=== PATIENT | female | born 2000 | race Caucasian/White ===

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

== ENCOUNTER 2023-07-05 17:06 | Emergency (ER) | payer BC ==
[2023-07-05] MEDS ORDERED: SODIUM CHLORIDE 0.9% 1,000 ML IV STA ×2 (17:48→21:55)
--- NOTE | 2023-07-05 17:53 | ED ---
Abdominal Pain HPI - General Chief Complaint: Abdominal Pain Stated Complaint: Abd/Back/Head pain Time Seen by Provider: 07/05/23 17:38 Source: patient, RN notes reviewed Mode of arrival: ambulatory Limitations: no limitations - History of Present Illness Initial Comments: Patient is a 22-year-old female presented ER with chief complaint of right lower quadrant pain patient states that her pain originally started on 07/03/23. Patient states the pain started in her right lower quadrant and has now spread to her right flank. Patient states she had one episode of vomiting last night. She denies any current nausea. She also reports a fever of 101 last night she took [id number] medication with relief. Patient states her last mental cycles about 20 days ago. Patient denies any chest pain, shortness of breath, dysuria, constipation/diarrhea. Denies any prior abdominal surgeries. Denies possible . Patient's mother, at bedside, states that her brother gets kidney stones frequently. - Related Data Previous Rx's Medication Instructions Recorded Ciprofloxacin HCl [Cipro] 500 mg PO Q12HR #20 tablet 07/05/23 Allergies Allergy/AdvReac Type Severity Reaction Status Date / Time No Known Allergies Allergy Verified 07/05/23 17:33 Review of Systems ROS Statement: Those systems with pertinent positive or pertinent negative responses have been documented in the HPI. ROS Other: All systems not noted in ROS Statement are negative. Past Medical History Past Medical History: Asthma Additional Past Medical History / Comment(s): Esophagitis History of Any Multi-Drug Resistant Organisms: None Reported Past Surgical History: Adenoidectomy, Tonsillectomy Past Psychological History: No Psychological Hx Reported Smoking Status: Never smoker Past Alcohol Use History: None Reported Past Drug Use History: None Reported General Exam Limitations: no limitations General appearance: alert, in no apparent distress Respiratory exam: Present: normal lung sounds bilaterally. Absent: respiratory distress, wheezes, rales, rhonchi, stridor Cardiovascular Exam: Present: tachycardia, normal heart sounds GI/Abdominal exam: Present: soft, tenderness (right sided), normal bowel sounds Back exam: Present: CVA tenderness (R) Neurological exam: Present: alert, oriented X3, CN II-XII intact Psychiatric exam: Present: normal affect, normal mood Skin exam: Present: warm, normal color, diaphoretic Course Vital Signs 07/05/23 07/05/23 17:31 21:00 Temperature 98.2 F 100.6 F H Pulse Rate 113 H Respiratory 20 Rate Blood Pressure 116/79 O2 Sat by Pulse 99 Oximetry Medical Decision Making - Medical Decision Making Was pt. sent in by a medical professional or institution (HENRRY Burnham, CREATIVE RESOURCE MANAGER, urgent care, hospital, or [facility]...) When possible be specific @ -No Did you speak to anyone other than the patient for history (EMS, parent, family, police, friend...)? What history was obtained from this source @ -Mother Did you review nursing and triage notes (agree or disagree)? Why? @ -I reviewed and agree with nursing and triage notes Were old charts reviewed (outside hosp., previous admission, EMS record, old EKG, old radiological studies, urgent care reports/EKG's, [facility] records)? Report findings @ -No old charts were reviewed Differential Diagnosis (chest pain, altered mental status, abdominal pain women, abdominal pain men, vaginal bleeding, weakness, fever, dyspnea, syncope, headache, dizziness, GI bleed, back pain, seizure, CVA, palpatations, mental health, musculoskeletal)? @ -Differential Abdominal Pain Women: Appendicitis, Cholecystitis, diverticulosis, ischemic bowel, pancreatitis, hepatitis, UTI, gastroenteritis, AAA, incarcerated hernia, bowel obstruction, constipation, inflammatory bowel, hepatitis, peptic ulcer disease, splenic infarction, perforated viscus, vulvitis, ovarian torsion, PID, kidney stone, placenta abruption, this is not meant to be an all-inclusive list EKG interpreted by me (3pts min.). @ -None X-rays interpreted by me (1pt min.). @ -None done CT interpreted by me (1pt min.). @ -CT abdomen and pelvis shows a mildly dilated right ureter without urinary calculi noted. This could correlate to previous stone. U/S interpreted by me (1pt. min.). @ -None done What testing was considered but not performed or refused? (CT, X-rays, U/S, labs)? Why? @ -None What meds were considered but not given or refused? Why? @ -None Did you discuss the management of the patient with other professionals (professionals i.e. HENRRY Burnham, CREATIVE RESOURCE MANAGER, lab, RT, psych nurse, social media community manager, senior telecommunications specialist, teacher, information assurance officer, telehealth case manager)? Give summary @ -No Was smoking cessation discussed for >3mins.? @ -No Was critical care preformed (if so, how long)? @ -No Were there social determinants of health that impacted care today? How? (Samantha elessness, low income, unemployed, alcoholism, drug addiction, transportation, low edu. Level, literacy, decrease access to med. care, [facility], rehab)? @ -No Was there de-escalation of care discussed even if they declined (Discuss DNR or withdrawal of care, Hospice)? DNR status @ -No What co-morbidities impacted this encounter? (DM, HTN, Smoking, COPD, CAD, Cancer, CVA, ARF, Chemo, Hep., AIDS, mental health diagnosis, sleep apnea, morbid obesity)? @ -None Was patient admitted / discharged? Hospital course, mention meds given and route, prescriptions, significant lab abnormalities, going to OR and other pertinent info. @ -Discharge. Upon examination, patient had right CVA tenderness and right- sided abdominal pain. Patient did look slightly diaphoretic. Labs were significant for white blood cell count of 15.8. Urine analysis was positive for large leukocytes with rare bacteria. Patient received 1 L of IV fluid for hydration. CT abdomen and pelvis shows mildly dilated right ureter without urinary cultures were noted. This could be correlated to previous stone. Patient received 2 g of IV Rocephin and another liter of fluids prior to discharge. Patient spiked a fever of 100.3 in the ER and received by mouth Tylenol for fever control. Patient will be discharged in stable condition with a prescription for ciprofloxacin. I advised patient to stay well-hydrated and to complete full antibiotic course. Return parameters were discussed. Patient will be discharged in stable condition with follow-up to PCP. Patient and mother expressed understanding and agreement with care plan. Undiagnosed new problem with uncertain prognosis? @ -No Drug Therapy requiring intensive monitoring for toxicity (Heparin, Nitro, Insulin, Cardizem)? @ -No Were any procedures done? @ -No Diagnosis/symptom? @ -Urinary tract infection/pyelonephritis Acute, or Chronic, or Acute on Chronic? @ -Acute Uncomplicated (without systemic symptoms) or Complicated (systemic symptoms)? @ -Uncomplicated Side effects of treatment? @ -No Exacerbation, Progression, or Severe Exacerbation? @ -No Poses a threat to life or bodily function? How? (Chest pain, [place], [place], pneumonia, PE, COPD, DKA, ARF, appy, cholecystitis, CVA, Diverticulitis, Homicidal, Suic idal, threat to staff... and all critical care pts) @ -Yes, pyelonephritis can lead to sepsis. - Lab Data Result diagrams: 07/05/23 18:11 07/05/23 18:11 Lab Results 07/05/23 07/05/23 07/05/23 Range/Units 18:06 18:06 18:11 WBC 15.8 H (4.0-11.0) k/uL RBC 4.34 (3.80-5.40) m/uL Hgb 13.8 (11.4-16.0) gm/dL Hct 41.4 (34.0-46.0) % MCV 95.4 (80.0-100.0) fL MCH 31.8 (25.0-35.0) pg MCHC 33.4 (31.0-37.0) g/dL RDW 12.8 (11.5-15.5) % Plt Count 194 (150-450) k/uL MPV 8.0 Neutrophils % 86 % Lymphocytes % 7 % Monocytes % 5 % Eosinophils % 1 % Basophils % 0 % Neutrophils # 13.6 H (1.3-7.7) k/uL Lymphocytes # 1.2 (1.0-4.8) k/uL Monocytes # 0.7 (0-1.0) k/uL Eosinophils # 0.1 (0-0.7) k/uL Basophils # 0.0 (0-0.2) k/uL Sodium (137-145) mmol/L Potassium (3.5-5.1) mmol/L Chloride (98-107) mmol/L Carbon Dioxide (22-30) mmol/L Anion Gap mmol/L BUN (7-17) mg/dL Creatinine (0.52-1.04) mg/dL Est GFR (CKD-EPI)AfAm (>60 ml/min/1.73 sqM) Est GFR (CKD-EPI)NonAf (>60 ml/min/1.73 sqM) Glucose (74-99) mg/dL Plasma Lactic Acid Edgardo (0.7-2.0) mmol/L Calcium (8.4-10.2) mg/dL Total Bilirubin (0.2-1.3) mg/dL AST (14-36) U/L ALT (4-34) U/L Alkaline Phosphatase (38-126) U/L Total Protein (6.3-8.2) g/dL Albumin (3.5-5.0) g/dL Amylase (30-110) U/L Lipase (23-300) U/L Urine Color Colorless Urine Appearance Cloudy H (Clear) Urine pH 6.5 (5.0-8.0) Ur Specific [place] 1.005 (1.001-1.035) Urine Protein 1+ H (Negative) Urine Glucose (UA) Negative (Negative) Urine Ketones Negative (Negative) Urine Blood Large H (Negative) Urine Nitrite Negative (Negative) Urine Bilirubin Negative (Negative) Urine Urobilinogen <2.0 (<2.0) mg/dL Ur Leukocyte Esterase Large H (Negative) Urine RBC 13 H (0-5) /hpf Urine WBC >182 H (0-5) /hpf Urine WBC Clumps Few H (None) /hpf Ur Squamous Epith Cells 4 (0-4) /hpf Urine Bacteria Occasional H (None) /hpf Urine HCG, Qual Not Detected (Not Detectd) 07/05/23 07/05/23 Range/Units 18:11 18:11 WBC (4.0-11.0) k/uL RBC (3.80-5.40) m/uL Hgb (11.4-16.0) gm/dL Hct (34.0-46.0) % MCV (80.0-100.0) fL MCH (25.0-35.0) pg MCHC (31.0-37.0) g/dL RDW (11.5-15.5) % Plt Count (150-450) k/uL MPV Neutrophils % % Lymphocytes % % Monocytes % % Eosinophils % % Basophils % % Neutrophils # (1.3-7.7) k/uL Lymphocytes # (1.0-4.8) k/uL Monocytes # (0-1.0) k/uL Eosinophils # (0-0.7) k/uL Basophils # (0-0.2) k/uL Sodium 138 (137-145) mmol/L Potassium 4.2 (3.5-5.1) mmol/L Chloride 106 (98-107) mmol/L Carbon Dioxide 22 (22-30) mmol/L Anion Gap 10 mmol/L BUN 9 (7-17) mg/dL Creatinine 0.73 (0.52-1.04) mg/dL Est GFR (CKD-EPI)AfAm >90 (>60 ml/min/1.73 sqM) Est GFR (CKD-EPI)NonAf >90 (>60 ml/min/1.73 sqM) Glucose 96 (74-99) mg/dL Plasma Lactic Acid Edgardo 1.1 (0.7-2.0) mmol/L Calcium 9.3 (8.4-10.2) mg/dL Total Bilirubin 1.9 H (0.2-1.3) mg/dL AST 26 (14-36) U/L ALT 17 (4-34) U/L Alkaline Phosphatase 66 (38-126) U/L Total Protein 6.8 (6.3-8.2) g/dL Albumin 4.3 (3.5-5.0) g/dL Amylase 52 (30-110) U/L Lipase 67 (23-300) U/L Urine Color Urine Appearance (Clear) Urine pH (5.0-8.0) Ur Specific [place] (1.001-1.035) Urine Protein (Negative) Urine Glucose (UA) (Negative) Urine Ketones (Negative) Urine Blood (Negative) Urine Nitrite (Negative) Urine Bilirubin (Negative) Urine Urobilinogen (<2.0) mg/dL Ur Leukocyte Esterase (Negative) Urine RBC (0-5) /hpf Urine WBC (0-5) /hpf Urine WBC Clumps (None) /hpf Ur Squamous Epith Cells (0-4) /hpf Urine Bacteria (None) /hpf Urine HCG, Qual (Not Detectd) - Radiology Data Radiology results: report reviewed, image reviewed Disposition Clinical Impression: Urinary tract infection, Pyelonephritis Disposition: HOME SELF-CARE Condition: Stable Additional Instructions: Please return to the Emergency Department if symptoms worsen or any other concerns. Please stay well-hydrated and complete full course of antibiotics. Please follow-up with primary care physician. Prescriptions: Ciprofloxacin HCl [Cipro] 500 mg PO Q12HR #20 tablet Is patient prescribed a controlled substance at d/c from ED?: No Referrals: Greg Santoro DO [Primary Care Provider] - 1-2 days Time of Disposition: 22:17
[2023-07-05 17:54] VITALS: BP 116/79; PULSE 113; RESP 20
[2023-07-05 18:32] LABS: Appearance,Urine Cloudy (Clear); Bacteria,Urine Occasional /hpf; Bilirubin,Urine Negative (Negative); Blood,Urine Large (Negative); Color,Urine Colorless; Glucose,Urine (UA) Negative (Negative); Ketones,Urine Negative (Negative); Leukocyte Esterase,Urine Large (Negative); Nitrite,Urine Negative (Negative); PH, Urine 6.5 (5.0-8.0); Protein,Urine 1+ (Negative); RBC,Urine 13 /hpf (0-5); Specific Gravity,Urine 1.005 (1.001-1.035); Squamous Epithelial Cell,Urine 4 /hpf (0-4); Urobilinogen,Urine <2.0 mg/dL (<2.0); WBC,Urine >182 /hpf (0-5)
[2023-07-05 18:35] LABS: ALT 17 U/L (4-34); African American GFR (CKD) >90 (>60 ml/min/1.73 sqM); Albumin 4.3 g/dL (3.5-5.0); Amylase 52 U/L (30-110); Anion Gap 10 mmol/L; Blood Urea Nitrogen 9 mg/dL (7-17); Calcium 9.3 mg/dL (8.4-10.2); Carbon Dioxide 22 mmol/L (22-30); Chloride 106 mmol/L (98-107); Glucose 96 mg/dL (74-99); Lipase 67 U/L (23-300); Non-African American GFR(CKD) >90 (>60 ml/min/1.73 sqM); Sodium 138 mmol/L (137-145); Total Bilirubin 1.9 mg/dL (0.2-1.3); Total Protein 6.8 g/dL (6.3-8.2)
[2023-07-05 18:42] LABS: AST 26 U/L (14-36); Alkaline Phosphatase 66 U/L (38-126); Potassium 4.2 mmol/L (3.5-5.1)
[2023-07-05 19:01] LABS: Basophils % (A) 0 %; Eosinophils # (A) 0.1 k/uL (0-0.7); Eosinophils % (A) 1 %; HCT 41.4 % (34.0-46.0); HGB 13.8 gm/dL (11.4-16.0); Lymphocytes # (A) 1.2 k/uL (1.0-4.8); Lymphocytes % (A) 7 %; MCH 31.8 pg (25.0-35.0); MCHC 33.4 g/dL (31.0-37.0); MCV 95.4 fL (80.0-100.0); Monocytes # (A) 0.7 k/uL (0-1.0); Monocytes % (A) 5 %; Neutrophils # (A) 13.6 k/uL (1.3-7.7); Neutrophils % (A) 86 %; Platelet Count 194 k/uL (150-450); RBC 4.34 m/uL (3.80-5.40); RDW 12.8 % (11.5-15.5); WBC 15.8 k/uL (4.0-11.0)
[2023-07-05] MEDS ORDERED: ACETAMINOPHEN TAB 325 MG TAB PO STA (21:41)
--- NOTE | 2023-07-05 22:01 | CT ---
EXAMINATION TYPE: CT abdomen pelvis wo con CT DLP: 466 mGycm, Automated exposure control for dose reduction was used. DATE OF EXAM: 07/05/2023 7:33 PM COMPARISON: None. CLINICAL INDICATION:Female, 22 years old with history of flank pain; RT side abdominal/flank pain TECHNIQUE: Axial CT of the abdomen and pelvis. Sagittal and coronal reformats were created on a [employer] workstation. Contrast used: mL of , (none if empty) Oral contrast used: without Oral Contrast (none if empty) FINDINGS: Exam is limited by lack of contrast. LOWER CHEST: Unremarkable ABDOMEN LIVER: Unremarkable GALLBLADDER AND BILE DUCTS: Gallbladder appears contracted. No biliary ductal dilatation is seen. PANCREAS: Unremarkable. SPLEEN: Unremarkable. ADRENAL GLANDS: Unremarkable. KIDNEYS AND URETERS: No renal calculi are seen. There is a mildly prominent appearance of the upper r ight ureter, with mild stranding of the adjacent fat, without definite calculi seen along the course of the ureter. PELVIS BLADDER: Unremarkable REPRODUCTIVE: Unremarkable. ABDOMEN & PELVIS STOMACH AND BOWEL: Stomach and small bowel are nondistended, no evidence of obstruction. Appendix is not readily identified, there is no inflammatory process in the right lower quadrant. Some stool thro ughout the colon without focal inflammatory process seen. PERITONEUM/RETROPERITONEUM: No evidence of pneumoperitoneum or free fluid. VASCULATURE: No evidence of aortic aneurysm. MUSCULOSKELETAL: No acute osseous abnormalities LYMPH NODES: No gross evidence for lymphadenopathy. SOFT TISSUE/ABDOMINAL WALL: Unremarkable IMPRESSION: Mildly prominent right upper ureter, without urinary tract calculi seen. This may represent recently passed stone, correlate clinically.
[2023-07-05 23:09] VITALS: TEMP 99.8
== END 2023-07-05 23:30 | disposition home or self-care (01) ==
LOC: EC 17:06
DX: N12 Tubulo-interstitial nephritis, not specified as acute or chronic (principal); J45.909 Unspecified asthma, uncomplicated
CPT/HCPCS: 36415; 80053; 82150; 83605; 83690; 85025; 81001; 81025; 87086; 87077; 87186; 74176; 99284; 96365; 96361 ×2; J0696

== ENCOUNTER → 2024-07-14 | Outpatient (CLI) | payer BC ==
--- NOTE | 2024-07-14 14:33 | MR ---
EXAMINATION TYPE: MR shoulder arthrogram RT w co DATE OF EXAM: 07/14/2024 2:03 PM COMPARISON: No radiographic correlation available. CLINICAL INDICATION: Female, 23 years old with history of M25.319 OTHER INSTABILITY, UNSPECIFIED SHOU LDER, Rt shoulder numbness, tingling, pain x 8 months, TECHNIQUE: Multiplanar, multisequence images of the right shoulder were obtained after intra-articula r administration of a gadolinium mixture. Please refer to mammogram injection port of the same day fo r further details. FINDINGS: The long head biceps tendon and biceps anchor appears intact. There is satisfactory distention of the shoulder joint after arthrogram injection. The superior labrum appears intact. There is irregularity of the glenoid labrum at the posterior inferior quadrant weight separation jorge l g the labral chondral junction, referred to coronal image 17, axial image 12, and sagittal image 18. No para labral cyst. The glenohumeral joint itself is intact. Subscapularis, supraspinatus, infraspinatus tendons are intact. No atrophy of the rotator cuff muscul ature. The AC joint is intact. Trace effusion within the cervical canal/subdeltoid bursa. No Hill-Sachs deformity or os acromiale. No suspicious bone marrow replacement. IMPRESSION: 1. Labral tear along the posterior inferior corner of the glenoid. No paralabral cyst. 2. No rotator cuff tendon tear or other discrete abnormality seen. [facility], , 07/14/2024 2:30 PM
--- NOTE | 2024-07-14 16:00 | FL ---
EXAMINATION TYPE: FL arthrogram shoulder RT DATE OF EXAM: 07/14/2024 2:12 PM COMPARISON: None CLINICAL INDICATION: Female, 23 years old with history of M25.319 OTHER INSTABILITY, UNSPECIFIED SHOU LDER; [facility] TECHNIQUE/PROCEDURE: This study was performed by Dr. Gonzales. After the procedure was explained and i nformed consent was obtained from the patient, the patient was prepped and draped in the usual steril e fashion. 1% Lidocaine was used as local anesthetic using a 25 gauge needle. A 25 gauge needle was t hen advanced into the glenohumeral joint using fluoroscopic guidance. Approximately 12 cc of contrast was injected into the joint (an admixture of Gadavist, Isovue M2 200, and sterile saline). The need le was then removed and a Band-Aid was applied. The patient tolerated procedure well. The patient was then sent to the MR unit for an MRI exam. Fluoroscopic time:51 seconds Fluoroscopic images:0 Radiographs taken: 3 FINDINGS: Contrast was seen filling the glenohumeral joint initially. As the contrast filled the tania nt note was made of filling of the subcoracoid bursa. No extracapsular contrast collections were not ed. IMPRESSION: Successful right shoulder arthrogram. MRI right shoulder report to follow. [facility], , 07/14/2024 3:57 PM
== END | disposition home or self-care (01) ==
LOC: RADFLMAIN 12:40
PROVIDERS: ATTEND Orthopaedic Surgery
DX: S43.431A Superior glenoid labrum lesion of right shoulder, initial encounter (principal); M25.311 Other instability, right shoulder
CPT/HCPCS: 23350; 73040; 73222; Q9966; A9585

== ENCOUNTER → 2024-07-28 | Outpatient (CLI) | payer BC ==
[2024-07-28 15:48] LABS: Blood Urea Nitrogen 14.1 mg/dL (9.0-27.0)
[2024-07-28 15:49] LABS: HCG,Quantitative Serum <3.0 mIU/mL (0.0-6.0); Potassium 4.8 mmol/L (3.5-5.5)
== END | disposition home or self-care (01) ==
LOC: LABWHC1 10:17
PROVIDERS: ATTEND Internal Medicine
DX: L70.0 Acne vulgaris (principal); L72.0 Epidermal cyst
CPT/HCPCS: 36415; 82565; 84132; 84520; 84702

== ENCOUNTER → 2024-10-29 | Outpatient (CLI) | payer BC ==
--- NOTE | 2024-10-30 00:09 | MR ---
EXAMINATION TYPE: MR lumbar spine wo con DATE OF EXAM: 10/29/2024 9:54 PM COMPARISON: 02/01/2019. CLINICAL INDICATION: Female, 24 years old with history of M54.50;, Low back pain into legs for years TECHNIQUE: Multi planar, multi sequence imaging was performed utilizing: T1-weighted, T2-weighted, a nd turbo inversion recovery imaging of the lumbar spine. IV Contrast: mL (None, if empty) FINDINGS: Alignment: The lumbar vertebral bodies have preserved heights and alignment. Cord: The conus medullaris and the distal spinal cord appear unremarkable with regards to their signa l intensity and morphology. Bones/Discs: Superior endplate of L2 L4 Schmorl nodes noted. No bony edema. Mild degeneration changes throughout the spine with osteophyte formation and facet joint arthropathy. Intervertebral disc sign al is maintained. No abnormal inversion recovery signal to suggest bony edema. T12-L1: No evidence of significant spinal canal stenosis or neural foraminal stenosis. L1-L2: No evidence of significant spinal canal stenosis or neural foraminal stenosis. L2-L3: No evidence of significant spinal canal stenosis or neural foraminal stenosis. L3-L4: Central disc bulge with superimposed protrusion with mild to moderate spinal canal stenosis. T his closely approximates the nerves. There is no significant neural foraminal stenosis. L4-L5: Left central and central disc protrusion with mild spinal canal stenosis/narrowing the ventral subarachnoid space. The neural foramen are patent. This closely approximate nerves in the spinal can al on the left. L5-S1: The disc has a rounded posterior morphology without significant spinal canal stenosis. Facet j oint arthropathy with mild bilateral neural foraminal stenosis. No significant spinal canal or neural foraminal stenosis in the remainder of the visualized levels. Other findings: None. IMPRESSION: 1. New from 2019, L3-L4 disc bulge with superimposed protrusion with mild to moderate central canal stenosis. Scoliosis approximately multiple nerve roots. 2. New from 2019, L4-L5 central and left central disc protrusion which closely approximates the left exiting nerves. 3. Mild degeneration changes for patient's age with superior endplate Schmorl's nodes at L2 and L4. These appear chronic. [facility], , 10/30/2024 12:07 AM
== END | disposition home or self-care (01) ==
LOC: RADMRIMAIN 21:45
PROVIDERS: ATTEND Orthopaedic Surgery Orthopaedic Surgery of the Spine
DX: M51.26 Other intervertebral disc displacement, lumbar region (principal); M41.86 Other forms of scoliosis, lumbar region; M48.061 Spinal stenosis, lumbar region without neurogenic claudication; M47.816 Spondylosis without myelopathy or radiculopathy, lumbar region
CPT/HCPCS: 72148

== ENCOUNTER → 2024-11-28 | Outpatient (CLI) | payer BC ==
--- NOTE | 2024-11-28 13:33 | US ---
EXAMINATION TYPE: US venous doppler duplex LE RT DATE OF EXAM: 11/28/2024 1:21 PM COMPARISON: NONE CLINICAL INDICATION: Female, 24 years old with history of [id number] CALF PAIN; Tightness in RLE x poplit eal fossa and proximal calf x awhile, worsening overnightt; Patient denies any other signs, symptoms, or relevant history TECHNIQUE: The lower extremity deep venous system is examined utilizing real time linear array sonog nicolle with graded compression, color doppler sonography, and spectral doppler. SIDE PERFORMED: Right FINDINGS: VESSELS IMAGED: Common Femoral Vein Deep Femoral Vein Greater Saphenous Vein * Femoral Vein Popliteal Vein Small Saphenous Vein * Proximal Calf Veins (* superficial vessels) Right Leg: Negative for DVT, Color Doppler imaging shows patency of the vessels. Spectral waveforms are within normal limits. IMPRESSION: No evidence for DVT within the right lower extremity imaged from the groin to the upper calf. [facility], , 11/28/2024 1:31 PM
== END | disposition home or self-care (01) ==
LOC: RADUSWWP 11:57
PROVIDERS: ATTEND Orthopaedic Surgery Foot and Ankle Surgery
DX: M79.661 Pain in right lower leg (principal)